=== PATIENT | female | born 1995 | race Caucasian/White ===

== ENCOUNTER 2020-05-28 05:25 | Inpatient (IN) | payer OTHER ==
[~2020-05-28] VITALS: Ht 167.6 cm; Wt 85.3 kg
[~2020-05-28 05:25] MED LIST: MACROBID 100 M100 MG PO; PRENATAL MULTI1 EAC1 PO
[2020-05-28 07:12] LABS: HEMOGLOBIN 10.6 gm/dl (12.3-15.3); RED BLOOD COUNT 3.74 M/UL (4.00-5.10); WHITE BLOOD COUNT 10.2 K/UL (4.5-11.0)
[2020-05-29 06:40] LABS: HEMOGLOBIN 9.2 gm/dl (12.3-15.3)
[2020-05-29] MEDS ORDERED: DOCUSATE SODIU100 MG PO (14:26)
[2020-05-29] MEDS ORDERED: TYLENOL EXTRA500 MG PO (14:26)
[2020-05-29] MEDS ORDERED: IBUPROFEN800 MG PO (14:26)
== END 2020-05-29 12:22 | disposition home or self-care (01) | DRG 807 ==
LOC: GENOP 05:25 → OB 06:45
PROVIDERS: ADMIT Obstetrics & Gynecology
PROC: 10E0XZZ Delivery of Products of Conception, External Approach (ICD-10-PCS; principal; 2020-05-28)
PROC: 0KQM0ZZ Repair Perineum Muscle, Open Approach (ICD-10-PCS; 2020-05-28)
PROC: 10907ZC Drainage of Amniotic Fluid, Therapeutic from Products of Conception, Via Natural or Artificial Opening (ICD-10-PCS; 2020-05-28)
PROC: 10H07YZ Insertion of Other Device into Products of Conception, Via Natural or Artificial Opening (ICD-10-PCS; 2020-05-28)
DX: O34.211 Maternal care for low transverse scar from previous cesarean delivery (principal); Z37.0 Single live birth; N85.8 Other specified noninflammatory disorders of uterus; Z3A.40 40 weeks gestation of pregnancy; O70.1 Second degree perineal laceration during delivery; O99.013 Anemia complicating pregnancy, third trimester; D64.9 Anemia, unspecified
CPT/HCPCS: 36415; 51702; 81001; 82800; 83518; 85014; 85018; 85025; J0595; J2001; J2590; J2795; J7120; U0003